=== PATIENT | male | born 1980 | race Two or more races ===

== ENCOUNTER 2018-04-01 01:50 | Emergency (ER) | payer OTHER ==
[2018-04-01] MEDS: HYDROCODONE/APAP (5/325) TAB PO (04:24)
== END 2018-04-01 05:03 | disposition home or self-care (01) ==
LOC: FTE 01:50
DX: S62.621A Displaced fracture of middle phalanx of left index finger, initial encounter for closed fracture (principal); R40.2412 Glasgow coma scale score 13-15, at arrival to emergency department; Y09 Assault by unspecified means
CPT/HCPCS: 29130; 73130-LT; 99283-25